=== PATIENT | male | born 1985 | race Caucasian/White ===

== ENCOUNTER → 2017-11-25 | Outpatient (CLI) | payer OTHER ==
--- NOTE | 2017-11-27 10:33 | RADIOLOGY REPORT (SQ) ---
EXAM DESCRIPTION: MRI LT LOWER JOINT WITHOUT COMPLETED DATE/TIME: 11/25/2017 1:43 pm REASON FOR STUDY: LEFT UPPER BUTTOCK SOFT TISSUE W/ EDEMA L98.9 DISORDER OF THE SKIN AND SUBCUTANEO US TISSUE, UNSPECIF COMPARISON: None. TECHNIQUE: Multiplanar imaging of the pelvis To include fat and fluid sensitive sequences. LIMITATIONS: None. FINDINGS: BONE MARROW: Normal. No fracture. No bone lesion. No marrow edema. SOFT TISSUES: Mild deep subcutaneous linear edema and presumed scarring along the left gluteal tissue s. No drainable collections. No suspicion of mass. Symmetric bilateral gluteal musculature without evidence of tear or atrophy. Trace fluid along the tip of the coccyx, which is otherwise not evalua evelia. OTHER: Intrapelvic soft tissues look relatively normal. IMPRESSION: 1. Suspect old posttraumatic changes related to the left gluteal subcutaneous fat, line ar scarring. No drainable collections. No gluteal atrophy. Incidental note is made of minimal deep soft tissue fluid along the tip of the coccyx. TECHNICAL DOCUMENTATION: JOB ID: [id number] [employer]- All Rights Reserved Reading location - IP/workstation name: [facility]
== END ==
LOC: RAD 12:41
PROVIDERS: ATTEND Family Medicine
DX: L98.9 Disorder of the skin and subcutaneous tissue, unspecified (principal)